=== PATIENT | female | born 1955 | race Two or more races ===

== ENCOUNTER 2018-05-12 07:30 | Day surgery (SDC) | payer OTHER ==
[2018-05-12 08:46] VITALS: BMI 24.8
[2018-05-12] MEDS ORDERED: BUPIVACAINE HCL/PF 0.5% (5MG/ML) 10 ML VIAL ONE (09:34)
[2018-05-12] MEDS ORDERED: ERYTHROMYCIN 0.5% OPHTHALMIC OINTMENT 3.5 GM TUBE ONE (09:34)
[2018-05-12] MEDS ORDERED: LIDOCAINE 1%/EPI 1:100000 (20 ML MULTI DOSE VIAL) ONE (09:34)
[2018-05-12] MEDS ORDERED: POVIDONE-IODINE 5% OPHTHALMIC PREP 30 ML SOLUTION ONE (09:34)
[2018-05-12] MEDS ORDERED: PROPOFOL 20 ML ONE (10:12)
[2018-05-12] MEDS ORDERED: MIDAZOLAM HCL 2 MG/2 ML SINGLE DOSE VIAL ONE (10:12)
[2018-05-12] MEDS ORDERED: KETOROLAC TROMETHAMINE 30 MG/1 ML VIAL ONE (10:13)
[2018-05-12] MEDS ORDERED: ceFAZolin SODIUM 1 GM VIAL ONE (10:13)
[2018-05-12] MEDS ORDERED: ONDANSETRON 4 MG/2 ML VIAL ONE (10:13)
[2018-05-12] MEDS ORDERED: DEXAMETHASONE SOD PHOSPHATE 4 MG/1 ML VIAL ONE (10:13)
[2018-05-12] MEDS ORDERED: PROMETHAZINE HCL 25 MG/1 ML VIAL IVPUSH PRN (11:12)
[2018-05-12] MEDS ORDERED: oxyCODONE HCL 5 MG TABLET PO PRN (11:12)
[2018-05-12] MEDS ORDERED: ONDANSETRON 4 MG/2 ML VIAL IVPUSH PRN (11:12)
[2018-05-12] MEDS ORDERED: ACETAMINOPHEN 325 MG TABLET (FP) PO PRN (11:12)
--- NOTE | 2018-05-12 11:53 | OP ---
DATE OF OPERATION: 05/12/2018 PREOPERATIVE DIAGNOSIS: Involutional entropion, left lower lid. POSTOPERATIVE DIAGNOSIS: Involutional entropion, left lower lid. PROCEDURE: 1. Lateral tarsal strip, left lower lid. 2. Transconjunctival plication of retractors, left lower lid. 3. Excision of orbicularis flap and inferior tarsus, left lower lid. SURGEON: Hank Weston MD ANESTHESIA: Local with sedation. COMPLICATIONS: None. ESTIMATED BLOOD LOSS: 2-3 mL. DESCRIPTION OF OPERATION: Patient was brought to the operating room, placed on the operating room table. Vital signs were monitored by Anesthesia. Tetracaine was placed in both eyes. Lateral canthal line was marked to the left lateral canthus. Patient was given intravenous sedation. A timeout was performed, and a 50/50 mixture of 2% Xylocaine with 1:100,000 epinephrine and 0.5% Marcaine was injected subcutaneously at the lateral canthus down to periosteum, lateral third of the upper and lower lid and subconjunctivally in the left lower lid, ballooning up the conjunctiva; 2-3 mL were administered. The patient was prepped and draped in usual sterile fashion, exposing both eyes. Lateral canthal incision was made at the left lateral canthus. This was carried down to periosteum with a [place] needle. Inferior klaus and lateral canthal tendon was from the orbital rim with sharp dissection. The lid was overlapped, marked with sterile marking pen, and divided between the anterior and posterior lamella. The anterior lamella was excised. Posterior lamella was denuded of epithelium posteriorly and superiorly. Retractors were released, and double-arm 5-0 Prolene was used to pass through the tarsal strip and pass through the periosteum at the appropriate position to be symmetric with the contralateral eye at the junction of the superior klaus and the lateral canthal tendon. This was reinforced in the tarsal strip with two 6-0 Vicryl lasso sutures to prevent of the Prolene, and this would ultimately be tied. A 4-0 silk traction stitch was passed through the lid margin centrally, and lid was everted over Desmarres retractor. Transconjunctival incision was made with the inferior tarsal border through conjunctival retractors. These were dissected off the postorbicularis surface down to releasing the septum. The pretarsal orbicularis was then from the inferior half of the tarsus, and a partial-thickness excision of pretarsal orbicularis at the inferior tarsal border was excised, creating a tarsal orbicularis flap excision so that there would be an adhesion in this point to prevent preseptal override. The retractors were then plicated to the anterior-inferior tarsus using 4 or 5 interrupted 6-0 Vicryl sutures, closing both the retractors and the conjunctivae with the suture in buried fashion. The lateral canthal angles were reformed with a buried 5-0 chromic to the weathers line of the upper and lower lid. The Prolene was then tied, reattaching the tarsal strip to the orbital rim. Excess tarsal strip was trimmed and sutured over the Prolene with a 5-0 chromic. Antibiotic irrigation was used throughout the case. The muscle layer was closed with buried 5-0 chromic, and the skin with running 6-0 plain suture. The traction stitch was removed. Erythromycin ointment was placed in the eye and on the lateral canthal sutures, and the patient was taken to the recovery room in stable condition. HANK WESTON M.D. [id number]
[2018-05-12 12:14] VITALS: TEMP 97.9
[2018-05-12 12:50] VITALS: BP 113/54; PULSE 65
== END 2018-05-12 12:50 | disposition home or self-care (01) ==
LOC: FASU 07:30
PROVIDERS: ATTEND Ophthalmology
PROC: 08SR0ZZ Reposition Left Lower Eyelid, Open Approach (ICD-10-PCS; principal; 2018-05-12 09:00)
DX: H02.035 Senile entropion of left lower eyelid (principal)
CPT/HCPCS: 94760

== ENCOUNTER 2021-05-10 22:24 | Emergency (ER) | payer OTHER ==
[2021-05-10 23:34] VITALS: BP 118/70; PULSE 58; TEMP 97.3; BMI 29.8
[2021-05-11 00:24] LABS: BASO % 0.5 % (0-2.0); EOS % 4.3 % (0-4.5); HEMATOCRIT 35.4 % (32.4-45.2); HEMOGLOBIN 11.1 GM/dL (10.7-15.3); LYMPH % 32.2 % (8-40); MCHC 31.4 g/dl (32.0-36.0); MEAN CELL VOLUME 62.1 fl (80-96); MEAN PLT VOLUME 8.7 fl (7.5-11.1); MONO % 12.1 % (3.8-10.2); NEUT % 50.9 % (42.8-82.8); PLATELET COUNT 170 10^3/uL (134-434); RDW 15.7 % (11.6-15.6); WHITE BLOOD COUNT 7.4 K/mm3 (4.0-10.0)
[2021-05-11 00:29] LABS: MCH 19.5 pg (25.7-33.7)
[2021-05-11 01:27] LABS: ALBUMIN 3.2 g/dl (3.4-5.0); BILIRUBIN,TOTAL 0.5 mg/dL (0.2-1); BLOOD UREA NITROGEN 9.2 mg/dL (7-18); CALCIUM 8.1 mg/dL (8.5-10.1); CREATININE 0.7 mg/dL (0.55-1.3); TOT PROT 6.9 g/dl (6.4-8.2)
[2021-05-11] MEDS ORDERED: ACETAMINOPHEN 500 MG TABLET (FP) PO ONE (01:38)
[2021-05-11] MEDS ORDERED: ACETAMINOPHEN 500 MG TABLET (FP) ONE ×2 (01:41→01:45)
[2021-05-11] MEDS ORDERED: diphenhydrAMINE HCL 25 MG CAPSULE (FP) PO ONE (02:15)
[2021-05-11 04:15] LABS: ANISOCYTOSIS 2+; MACROCYTOSIS 0
== END 2021-05-11 02:31 | disposition home or self-care (01) ==
LOC: FER 22:24
DX: R07.89 Other chest pain (principal)
CPT/HCPCS: 36415; 80053; 82550; 84484; 85025; 93005; 99284-25